=== PATIENT | female | born 1995 | race Caucasian/White ===

== ENCOUNTER 2017-06-29 11:22 | Emergency (ER) | payer MEDICAID, OTHER ==
[~2017-06-29] VITALS: Ht 167.6 cm; Wt 93.5 kg
[~2017-06-29 11:22] MED LIST: ONDA4TAB8 PO
[2017-06-29 11:26] VITALS: Ht 167.6 cm; Wt 93.5 kg
[2017-06-29 12:46] LABS: URINE BLOOD (Dip) POC Trace-intact (NEGATIVE)
[2017-06-29] MEDS ORDERED: NITR-58 PO (12:55)
--- NOTE | 2017-06-29 14:30 | ERD ---
ER Documentation Chief Complaint Date/Time DATE: 06/29/17 TIME: 14:23 Chief Complaint needs pregancy test LMP 06/12/17 HPI 21-year-old female coming in requesting test. Patient states that she feels nauseous. She had to do this last month and has had nausea she was concerned she may be . Patient has Implanon inserted one year ago. She has taken urine test at home. Tests have been negative. Patient denies dysuria but states she urinates frequently. Last vomit was this morning. Has generalized headache. Not worse headache of her life. Denies vomiting. No medical problems. NKDA. Surgical history denies. Social history denies. ROS All systems reviewed and are negative except as per history of present illness. Medications Home Meds Active Scripts Nitrofurantoin Monohyd Macrocr* (Macrobid*) 100 Mg Capsr, 100 MG PO BID for 7 Days, CAP Prov:XOCHITL GRAHAM PA-C 06/29/17 Ondansetron Hcl* (Zofran*) 4 Mg Tablet, 4 MG PO Q8H Y for NAUSEA AND/OR VOMITING , #10 TAB Prov:DMITRIY MARQUEZ DO 08/11/15 Allergies Allergies: Coded Allergies: No Known Allergy (Unverified , 08/11/15) PMhx/Soc Medical and Surgical Hx: pt denies Medical Hx, pt denies Surgical Hx Hx Alcohol Use: No Hx Substance Use: No Hx Tobacco Use: No Physical Exam Vitals Vital Signs Date Time Temp Pulse Resp B/P Pulse Ox O2 Delivery O2 Flow Rate FiO2 06/29/17 11:26 98.6 92 18 131/74 96 Physical Exam GENERAL: The patient is well-appearing, well-nourished, in no acute distress CHEST: Clear to auscultation bilaterally. There are no rales, wheezes or rhonchi. HEART: Regular rate and rhythm. No murmurs, clicks, rubs or gallops. No S3 or S4. ABDOMEN:Soft, nontender and nondistended. Good bowel sounds. No rebound or guarding. No gross peritonitis. No gross organomegaly or masses. No Manjarrez sign or McBurney point tenderness. BACK: No midline or flank tenderness. Results 24 hrs Laboratory Tests Test 06/29/17 12:53 Bedside Urine pH (LAB) 5.5 Bedside Urine Protein (LAB) Negative Bedside Urine Glucose (UA) Negative Bedside Urine Ketones (LAB) Negative Bedside Urine Blood Trace-intact Bedside Urine Nitrite (LAB) Negative Bedside Urine Leukocyte Esterase (L Trace Procedures/MDM ER Course: negative MDM: 21-year-old female planing of nausea with questionably positive . Patient's test was negative in the ED. And abdominal exam was not concerning. I have low suspicion for acute abdomen. Patient's abdominal exam is not concerning and I do not feel that further blood work or imaging was indicated. Patient does have questionable findings of urinary tract infection. I will treat for possible UTI. I have low suspicion for pyelonephritis. Patient was discharged to [facility] and recommended to follow-up with primary care within 1-2 days for close evaluation. Departure Condition: Stable Patient Instructions: Understanding Urinary Tract Infections (UTIs) Referrals: PANFILO DOMÍNGUEZ (PCP) Additional Instructions: FOLLOW UP WITH YOUR PRIMARY CARE PHYSICIAN TOMORROW.Return to this facility if you are not improving as expected. XOCHITL GRAHAM PA-C Jun 29, 2017 14:30
== END 2017-06-29 13:23 | disposition home or self-care (01) ==
LOC: FTE 11:22
DX: R11.0 Nausea (principal)
CPT/HCPCS: 81003; 87086; Z7502; 99283